=== PATIENT | female | born 1970 | race Caucasian/White ===

== ENCOUNTER 2017-05-13 10:50 | Emergency (ER) | payer OTHER ==
[~2017-05-13] VITALS: Ht 165.1 cm; Wt 70.0 kg
[~2017-05-13 10:50] MED LIST: DICY10CA60 PO; FAMO-18 PO; OMEP20CA9 PO; ONDA4TAB35 PO
[2017-05-13 10:54] VITALS: Ht 165.1 cm; Wt 70.0 kg
[2017-05-13] MEDS ORDERED: ALBUTEROL 0.083% (NEB) 2.5 MG/3 ML AMP HHN STA (11:07)
[2017-05-13] MEDS ORDERED: predniSONE 20 MG TAB PO ONE (11:30)
--- NOTE | 2017-05-13 12:11 | RADRPT ---
PROCEDURE: XR Chest. CLINICAL INDICATION: Shortness of breath, cough TECHNIQUE: Single frontal view of the chest was obtained COMPARISON: 06/02/2015 FINDINGS: The heart and mediastinum are within normal limits. The lungs are clear. There is no pleural effusion or pneumothorax. RPTAT: AA IMPRESSION: No acute disease. .Alfredo Devine MD, MD Date Time Electronically viewed and signed by .Alfredo Devine MD, MD on 05/13/2017 12:11 .S/
[2017-05-13] MEDS ORDERED: ALBU18HF INHALATION (12:29)
[2017-05-13] MEDS ORDERED: PRED20TA PO (12:29)
--- NOTE | 2017-05-13 12:33 | ERD ---
ER Documentation Chief Complaint Date/Time DATE: 05/13/17 TIME: 12:31 Chief Complaint SORETHROAT, COUGH, SOB, DX:BRONCHITIS YESTERDAY GIVEN ABX HPI This 47-year-old female presents with cough and sore throat for last 3 days. She seen yesterday and prescribed Zithromax. They are here for persistent cough. She has no history of fevers, sustained chest pain, vomiting, abdominal pain, diarrhea. She has some mild pleuritic anterior chest pain with coughing ROS All systems reviewed and are negative except as per history of present illness. Medications Home Meds Active Scripts Albuterol Sulfate* (Ventolin HFA*) 18 Gm Hfa.aer.ad, 2 PUFF INHALATION Q4H, #1 INHALER Prov:LAQUITA HART MD 05/13/17 Prednisone* (Prednisone*) 20 Mg Tab, 40 MG PO DAILY for 4 Days, TAB Start May 14, 2017 Prov:LAQUITA HART MD 05/13/17 Famotidine* (Pepcid*) 20 Mg Tablet, 20 MG PO BID for 10 Days, TAB Prov:YESSENIA WALKER DO 08/30/15 Ondansetron Hcl* (Zofran* ODT) 4 mg -ODT Tab.disper, 4 MG PO Q4H Y for NAUSEA AND OR VOMITING, #10 TAB Prov:YESSENIA WALKER DO 08/30/15 Dicyclomine Hcl* (Bentyl*) 10 Mg Capsule, 10 MG PO QID Y for INTESTINAL SPASMS/ CRAMPING, #30 CAP Prov:YESSENIA WALKER DO 08/30/15 Omeprazole* (Prilosec*) 20 Mg Capsule.dr, 20 MG PO DAILY, #30 CAP Prov:ENEIDA BENTLEY NP 05/17/15 Allergies Allergies: Coded Allergies: No Known Drug Allergy (Verified Allergy, Mild, 05/13/17) PMhx/Soc History of Surgery: Yes (rt ear) Anesthesia Reaction: No Hx Neurological Disorder: No Hx Respiratory Disorders: No Hx Cardiac Disorders: No Hx Psychiatric Problems: No Hx Miscellaneous Medical Probl: Yes (GASTRITIS ) Hx Alcohol Use: No Hx Substance Use: No Hx Tobacco Use: No Smoking Status: Never smoker Physical Exam Vitals Vital Signs Date Time Temp Pulse Resp B/P Pulse Ox O2 Delivery O2 Flow Rate FiO2 05/13/17 11:22 72 18 97 21 05/13/17 10:54 98.0 68 22 142/80 97 Physical Exam Const: [], [id number] Head: Atraumatic Eyes: Normal Conjunctiva ENT: Normal External Ears, Nose and Mouth. TMs and oropharynx normal. Neck: Full range of motion..~ No meningismus. Resp: Scattered wheezing and coarse breath sounds. No rales or retractions. Cardio: Regular rate and rhythm, no murmurs Abd: Soft, non tender, non distended. Normal bowel sounds Skin: No petechiae or rashes Back: No midline or flank tenderness Ext: No cyanosis, or edema Neur: Awake and alert Psych: Normal Mood and Affect Results 24 hrs Current Medications Medications (Trade) Dose Ordered Sig/Jules Route PRN Reason Start Time Stop Time Status Last Admin Dose Admin Prednisone (Prednisone) 60 mg ONCE ONCE PO 05/13/17 11:30 05/13/17 11:31 DC 05/13/17 11:10 Albuterol (Proventil 0.083% (Neb)) 5 mg ONCE STAT HHN 05/13/17 11:07 05/13/17 11:08 DC 05/13/17 11:19 Procedures/MDM Chest X-ray 1V Interpreted by me: Soft Tissue: No acute abnormalities Bones: No acute abnormalities Mediastinum/Cardiac Silhouette/Lungs: [No acute abnormalities]. Impression- normal 1 view chest X ray Patient is given albuterol treatment 1 and prednisone 60 mg of mouth. Patient had improved breath sounds on serial exam without hypoxemia, rales, retractions. Patient presents with URI symptoms and mild wheezing. She likely has URI with wheeze. She will discharged home with a short course prednisone and Ventolin and instructions for permission to continue antibiotics although this is likely viral illness. The patient was stable with no new complaints during the ER course. Clinically, there is no current evidence to suggest meningitis, sepsis, acute abdomen, pneumonia, acute coronary syndrome, pulmonary embolism, or any other emergent condition appearing to require further evaluation or hospitalization. The patient should certainly return for any new or worsening symptoms per the aftercare instructions. They should otherwise follow-up with her primary care doctor for reevaluation this week. Departure Diagnosis: Primary Impression: Upper respiratory infection URI type: unspecified URI Qualified Code: J06.9 - Upper respiratory tract infection, unspecified type Condition: Stable Patient Instructions: Bronchitis With Wheezing (Adult) Additional Instructions: x ray normal hoy. Cheque otro vez con rincon doctor primario en el proximo mccormick or regresa para mas o nueva simptomas. ok para continua antibioticos LAQUITA HART MD May 13, 2017 12:32
[2017-05-13 12:37] VITALS: BP 138/76; PULSE 89; RESP 20; TEMP 98
== END 2017-05-13 12:38 | disposition home or self-care (01) ==
LOC: FTE 10:50
DX: J06.9 Acute upper respiratory infection, unspecified (principal); R05 Cough
CPT/HCPCS: 71010; 94664; J7512; Z7610

== ENCOUNTER 2017-08-29 18:41 | Emergency (ER) | payer OTHER ==
[~2017-08-29] VITALS: Ht 162.6 cm; Wt 69.0 kg
[~2017-08-29 18:41] MED LIST changes: +ALBU18HF INHALATION; -FAMO-18 PO; +FAMO-96 PO; +PRED20TA PO
[2017-08-29 18:49] VITALS: Ht 162.6 cm; Wt 69.0 kg
[2017-08-29] MEDS ORDERED: KETOROLAC 30 MG INJ IM STA (19:57)
[2017-08-29 20:20] LABS: BASOPHILS % 0.4 % (0.0-2.0); EOSINOPHILS # 0.1 10^3/ul (0.0-0.5); EOSINOPHILS % 1.1 % (0.0-7.0); HEMATOCRIT 43.2 % (37.0-47.0); HEMOGLOBIN 15.2 g/dl (12.0-16.0); LYMPHOCYTES # 4.6 10^3/ul (0.8-2.9); LYMPHOCYTES % 50.8 % (15.0-51.0); MEAN CORPUSCULAR HEMOGLOBIN 31.3 pg (29.0-33.0); MEAN CORPUSCULAR HGB CONC 35.2 g/dl (32.0-37.0); MEAN CORPUSCULAR VOLUME 89.1 fl (82.0-101.0); MEAN PLATELET VOLUME 9.4 fl (7.4-10.4); MONOCYTE # 0.6 10^3/ul (0.3-0.9); NEUTROPHIL # 3.8 10^3/ul (1.6-7.5); NEUTROPHILS % 41.5 % (39.0-77.0); PLATELET COUNT 272 10^3/UL (140-415); RED BLOOD COUNT 4.85 10^6/ul (4.20-5.40); RED CELL DISTRIBUTION WIDTH 12.3 % (11.5-14.5); WHITE BLOOD COUNT 9.1 10^3/ul (4.8-10.8)
[2017-08-29 20:42] LABS: INR 1.01; PROTIME 13.3 Sec (12.2-14.2)
[2017-08-29 20:47] LABS: ALBUMIN 4.7 g/dl (3.3-4.9); ALBUMIN/GLOBULIN RATIO 1.38; BILIRUBIN,INDIRECT 0.4 mg/dl (0-1.1); BILIRUBIN,TOTAL 0.4 mg/dl (0.2-1.3); CALCIUM 9.5 mg/dl (8.4-10.2); CREATININE 0.74 mg/dl (0.44-1.00); POTASSIUM 3.4 mmol/L (3.5-5.1); TOTAL PROTEIN 8.1 g/dl (6.1-8.1)
[2017-08-29 21:01] LABS: ADD UMIC NO; UR ASCORBIC ACID NEGATIVE (NEGATIVE); UR BILIRUBIN (Dip) NEGATIVE (NEGATIVE); UR BLOOD (Dip) NEGATIVE (NEGATIVE); UR CLARITY CLEAR (CLEAR); UR COLOR STRAW (YELLOW); UR GLUCOSE (Dip) NEGATIVE (NEGATIVE); UR KETONES (Dip) NEGATIVE (NEGATIVE); UR LEUKOCYTE ESTERASE (Dip) NEGATIVE Leu/ul (NEGATIVE); UR NITRITE (Dip) NEGATIVE (NEGATIVE); UR SPECIFIC GRAVITY (Dip) 1.002 (1.003-1.030); UR TOTAL PROTEIN (Dip) NEGATIVE (NEGATIVE); UR UROBILINOGEN (Dip) NEGATIVE (NEGATIVE)
--- NOTE | 2017-08-29 22:10 | RADRPT ---
PROCEDURE: US abdomen right upper quadrant CLINICAL INDICATION: Abdominal pain. TECHNIQUE: Westbrook scale and color Doppler ultrasound of the right upper quadrant of the abdomen was p erformed. COMPARISON: CT dated 04/16/2015. FINDINGS: Pancreas: Visualized portions are unremarkable. Liver: Normal in size and echogenicity with no focal hepatic lesion. Hepatopedal flow in the main po rtal vein. Gallbladder: No cholelithiasis, gallbladder wall thickening, or pericholecystic fluid. Common bile duct: 2.0 mm in diameter. Right Kidney: 8.5 cm in length. Simple cyst at the upper pole measuring 1.4 cm. No nephrolithiasis, hydronephrosis, or mass. Ascites: None. IMPRESSION: 1. No acute abnormality or findings to suggest a source of the patient's symptoms. 2. Benign right renal cyst. RPTAT: HLBP .Ryan Powell MD, MD Date Time Electronically viewed and signed by .Ryan Powell MD, MD on 08/29/2017 22:10 .P/
--- NOTE | 2017-08-31 19:14 | ERD ---
ER Documentation Chief Complaint Chief Complaint no stools for 3 days, constipated HPI Patient is a 47-year-old female presenting to the emergency department complaining of constipation for the past 3 days. While the patient has been in the emergency department waiting, she had 3 solid yellow colored stools. Additionally she reports some right upper quadrant pain. She denies nausea, vomiting, fevers, chills, or other symptoms currently. Symptoms right now are moderate in severity and they are intermittent. ROS All systems reviewed and are negative except as per history of present illness. Medications Home Meds Active Scripts Albuterol Sulfate* (Ventolin HFA*) 18 Gm Hfa.aer.ad, 2 PUFF INHALATION Q4H, #1 INHALER Prov:LAQUITA HART MD 05/13/17 Prednisone* (Prednisone*) 20 Mg Tab, 40 MG PO DAILY for 4 Days, TAB Start May 14, 2017 Prov:LAQUITA HART MD 05/13/17 Famotidine* (Pepcid*) 20 Mg Tablet, 20 MG PO BID for 10 Days, TAB Prov:YESSENIA WALKER DO 08/30/15 Ondansetron Hcl* (Zofran* ODT) 4 mg -ODT Tab.disper, 4 MG PO Q4H Y for NAUSEA AND OR VOMITING, #10 TAB Prov:YESSENIA WALKER DO 08/30/15 Dicyclomine Hcl* (Bentyl*) 10 Mg Capsule, 10 MG PO QID Y for INTESTINAL SPASMS/ CRAMPING, #30 CAP Prov:YESSENIA WALKER DO 08/30/15 Omeprazole* (Prilosec*) 20 Mg Capsule.dr, 20 MG PO DAILY, #30 CAP Prov:ENEIDA BENTLEY NP 05/17/15 Allergies Allergies: Coded Allergies: No Known Drug Allergy (Verified Allergy, Mild, 05/13/17) PMhx/Soc Medical and Surgical Hx: pt denies Medical Hx, pt denies Surgical Hx History of Surgery: Yes (rt ear) Anesthesia Reaction: No Hx Neurological Disorder: No Hx Respiratory Disorders: No Hx Cardiac Disorders: No Hx Psychiatric Problems: No Hx Miscellaneous Medical Probl: Yes (GASTRITIS ) Hx Alcohol Use: No Hx Substance Use: No Hx Tobacco Use: No Smoking Status: Never smoker Physical Exam Vitals Vital Signs Date Time Temp Pulse Resp B/P Pulse Ox O2 Delivery O2 Flow Rate FiO2 08/29/17 18:49 98.6 68 20 120/81 98 Physical Exam Const: Nontoxic, well-appearing female in no acute distress. Head: Atraumatic Eyes: Normal Conjunctiva ENT: Normal External Ears, Nose and Mouth. Neck: Full range of motion..~ No meningismus. Resp: Clear to auscultation bilaterally Cardio: Regular rate and rhythm, no murmurs Abd: Soft, mild right upper quadrant tenderness palpation but no real Abdi sign, non distended. Normal bowel sounds and no tenderness palpation of McBurney 's point. No rebound tenderness or guarding noted. Skin: No petechiae or rashes Back: No midline or flank tenderness Ext: No cyanosis, or edema Neur: Awake and alert Psych: Normal Mood and Affect Result Diagram: 08/29/17200908/29/172009 Results 24 hrs Laboratory Tests Test 08/29/17 20:00 08/29/17 20:10 Urine Color STRAW Urine Clarity CLEAR Urine pH 8.0 Urine Specific Taft 1.002 Urine Ketones NEGATIVEmg/dL Urine Nitrite NEGATIVEmg/dL Urine Bilirubin NEGATIVEmg/dL Urine Urobilinogen NEGATIVEmg/dL Urine Leukocyte Esterase NEGATIVELeu/ul Urine Hemoglobin NEGATIVEmg/dL Urine Glucose NEGATIVEmg/dL Urine Total Protein NEGATIVEmg/dl White Blood Count 9.110^3/ul Red Blood Count 4.8510^6/ul Hemoglobin 15.2g/dl Hematocrit 43.2% Mean Corpuscular Volume 89.1fl Mean Corpuscular Hemoglobin 31.3pg Mean Corpuscular Hemoglobin Concent 35.2g/dl Red Cell Distribution Width 12.3% Platelet Count 36998^3/UL Mean Platelet Volume 9.4fl Neutrophils % 41.5% Lymphocytes % 50.8% Monocytes % 6.0% Eosinophils % 1.1% Basophils % 0.4% Nucleated Red Blood Cells % 0.0/100WBC Neutrophils # 3.810^3/ul Lymphocytes # 4.610^3/ul Monocytes # 0.610^3/ul Eosinophils # 0.110^3/ul Basophils # 0.010^3/ul Nucleated Red Blood Cells # 0.010^3/ul Prothrombin Time 13.3Sec Prothrombin Time Ratio 1.0 INR International Normalized Ratio 1.01 Activated Partial Thromboplast Time 27.0Sec Sodium Level 142mmol/L Potassium Level 3.4mmol/L Chloride Level 102mmol/L Carbon Dioxide Level 29mmol/L Anion Gap 14 Blood Urea Nitrogen 8mg/dl Creatinine 0.74mg/dl Glucose Level 85mg/dl Calcium Level 9.5mg/dl Total Bilirubin 0.4mg/dl Direct Bilirubin 0.00mg/dl Indirect Bilirubin 0.4mg/dl Aspartate Amino Transf (AST/SGOT) 25IU/L Alanine Aminotransferase (ALT/SGPT) 32IU/L Alkaline Phosphatase 69IU/L Total Protein 8.1g/dl Albumin 4.7g/dl Globulin 3.40g/dl Albumin/Globulin Ratio 1.38 Lipase 119U/L Current Medications Medications (Trade) Dose Ordered Sig/Jules Route PRN Reason Start Time Stop Time Status Last Admin Dose Admin Ketorolac Tromethamine (Toradol) 30 mg ONCE STAT IM 08/29/17 19:57 08/29/17 19:59 DC 08/29/17 21:25 Procedures/MDM 47-year-old female presents to the emergency department with complaints of right upper quadrant pain and constipation, however she did have 3 breakthrough bowel movements in the department. She was given IM Toradol and is feeling improved on reevaluation. Lab studies showed no evidence of leukocytosis or anemia, chemistry panel was within normal limits. Urinalysis negative for any concerning findings. Gallbladder ultrasound showed no acute abnormality or findings to suggest a source of the patient's symptoms. She did have a benign right renal cyst. Symptoms were likely secondary to constipation which resolved in the department. There is no evidence of acute abdomen or other life -threatening pathology after workup in the department. The patient was stable for discharge and is to have close follow-up with her primary care physician. She is to return immediately for any new or worsening symptoms. Results were shared with the patient and she was given copies. Her questions and concerns were addressed. PROCEDURE: US abdomen right upper quadrant CLINICAL INDICATION: Abdominal pain. TECHNIQUE: Westbrook scale and color Doppler ultrasound of the right upper quadrant of the abdomen was performed. COMPARISON: CT dated 04/16/2015. FINDINGS: Pancreas: Visualized portions are unremarkable. Liver: Normal in size and echogenicity with no focal hepatic lesion. Hepatopedal flow in the main portal vein. Gallbladder: No cholelithiasis, gallbladder wall thickening, or pericholecystic fluid. Common bile duct: 2.0 mm in diameter. Right Kidney: 8.5 cm in length. Simple cyst at the upper pole measuring 1.4 cm. No nephrolithiasis, hydronephrosis, or mass. Ascites: None. IMPRESSION: 1. No acute abnormality or findings to suggest a source of the patient's symptoms. 2. Benign right renal cyst. RPTAT: HLBP .Ryan Powell MD, Date Time Electronically viewed and signed by .Ryan Powell MD, MD on 08/29/2017 22:10 Departure Diagnosis: Primary Impression: Abdominal pain Abdominal location: right upper quadrant Qualified Code: R10.11 - Right upper quadrant abdominal pain Condition: Fair Additional Instructions: Follow up with your PCP within the next 1-3 days for a repeat evaluation. If you require a referral to a specialist, your Primary Care Provider may be able to provide this for you. In most patient cases, a referral is not required. If you have further questions regarding this matter, please ask your Primary Care Provider. Return the the emergency department immediately if symptoms worsen or change. If you have any questions regarding medications, ask your pharmacist or us before you leave. If any adverse reactions, occur while taking your medications, discontinue the treatment and return to the emergency department immediately. If any new or worsening symptoms, uncontrolled fevers, or other unexplained symptoms occur, return to the emergency department immediately. Take your medications as directed, and complete the entire course of treatment. KANG OJEDA PA-C Aug 31, 2017 19:14
== END 2017-08-29 23:32 | disposition home or self-care (01) ==
LOC: FTE 18:41
DX: K59.00 Constipation, unspecified (principal); R10.11 Right upper quadrant pain
CPT/HCPCS: 76705; 80053; 81003; 83690; 85025; 85610; 85730; 96372; J1885; Z7502

== ENCOUNTER 2018-05-23 17:06 | Emergency (ER) | END 2018-05-23 21:01 | disposition home or self-care (01) ==

== ENCOUNTER 2019-03-13 11:14 | Emergency (ER) | payer SELFPAY ==
[~2019-03-13] VITALS: Ht 162.6 cm; Wt 71.3 kg
[~2019-03-13 11:14] MED LIST changes: +DICY10CA40 PO; -DICY10CA60 PO; +DOCU-144 PO; +GLYC1SUP92 PR
[2019-03-13 11:25] VITALS: Ht 162.6 cm; Wt 71.3 kg
--- NOTE | 2019-03-13 12:39 | ERD ---
ER Documentation Chief Complaint Chief Complaint lump to left breast x 1 month HPI 49-year-old female, presents the emergency department, complaining of painful lump to the left breast for 1 month. The patient denies trauma, no fever, no chills. She reports a similar lump in the right breast that required aspiration in the past. The patient has an appointment with her primary doctor in 3 days. ROS All systems reviewed and are negative except as per history of present illness. Medications Home Meds Active Scripts Ibuprofen* (Motrin*) 600 Mg Tab, 600 MG PO Q8, #20 TAB Prov:IRIS DESAI MD 03/13/19 Docusate Sodium* (Colace*) 100 Mg Capsule, 100 MG PO BID, #30 CAP Prov:MARIO ROLLINS PA-C 05/23/18 Glycerin* (Glycerin (Adult)*) 1 Each Supp.rect, 1 EACH MA DAILY PRN for CONSTIPATION for 7 Days, SUPP.RECT Prov:MARIO ROLLINS PA-C 05/23/18 Albuterol Sulfate* (Ventolin HFA*) 18 Gm Hfa.aer.ad, 2 PUFF INHALATION Q4H, #1 INHALER Prov:LAQUITA HART MD 05/13/17 Prednisone* (Prednisone*) 20 Mg Tab, 40 MG PO DAILY for 4 Days, TAB Start May 14, 2017 Prov:LAQUITA HART MD 05/13/17 Famotidine* (Pepcid*) 20 Mg Tablet, 20 MG PO BID for 10 Days, TAB Prov:YESSENIA WALKER DO 08/30/15 Ondansetron Hcl* (Zofran* ODT) 4 mg -ODT Tab.disper, 4 MG PO Q4H PRN for NAUSEA AND OR VOMITING, #10 TAB Prov:YESSENIA WALKER DO 08/30/15 Dicyclomine HCl (Dicyclomine HCl) 10 Mg Capsule, 10 MG PO QID PRN for INTESTINAL SPASMS/CRAMPING, #30 CAP Prov:YESSENIA WALKER DO 08/30/15 Omeprazole* (Prilosec*) 20 Mg Capsule.dr, 20 MG PO DAILY, #30 CAP Prov:ENEIDA BENTLEY NP 05/17/15 Allergies Allergies: Coded Allergies: No Known Drug Allergy (Verified Allergy, Mild, 05/13/17) PMhx/Soc History of Surgery: Yes (rt ear) Anesthesia Reaction: No Hx Neurological Disorder: No Hx Respiratory Disorders: No Hx Cardiac Disorders: No Hx Psychiatric Problems: No Hx Miscellaneous Medical Probl: Yes (GASTRITIS ) Hx Alcohol Use: No Hx Substance Use: No Hx Tobacco Use: No FmHx No family history of breast or ovarian cancer. Physical Exam Vitals Vital Signs Date Temp Pulse Resp B/P (MAP) Pulse Ox O2 O2 Flow FiO2 Time Delivery Rate 03/13/19 97.7 88 18 132/83 97 11:25 (99) Physical Exam Const: No acute distress Head: Atraumatic Eyes: Normal Conjunctiva ENT: Normal External Ears, Nose and Mouth. Neck: Full range of motion. No meningismus. Resp: Clear to auscultation bilaterally. Breast: Symmetrical, normal inspection, left breast with 3 x 3 cm well-defined area of induration, but no erythema, no warmth, no fluctuance. Cardio: Regular rate and rhythm, no murmurs Abd: Soft, non tender, non distended. Normal bowel sounds Skin: No petechiae or rashes Back: No midline or flank tenderness Ext: No cyanosis, or edema Neur: Awake and alert Psych: Normal Mood and Affect Results 24 hrs Patient: ZENY MOCK : 1970 Age: 49 Sex: F MR #: [id number] DOS: 03/13/19 1242 Ordering MD: IRIS DESAI MD Location: [facility] Room/Bed: PROCEDURE: Left breast ultrasound. CLINICAL INDICATION: Left breast lump. Fibrocystic disease of breast. TECHNIQUE: Left four-quadrant, retroareolar, whole breast and axillary sonography was performed. COMPARISON: None FINDINGS: No solid or suspicious masses. No areas of architectural distortion. No malignant adenopathy. In the left upper outer quadrant, 2-3 o'clock position, 2-3 cm from the nipple; there is a benign, 2.7 x 2.6 x 2.2 cm simple cyst. IMPRESSION: No sonographic findings of malignancy. Benign, palpable, dominant 2.7 cm left upper outer quadrant simple cyst. ACR BIRADS 2: BENIGN Procedures/MDM Vital signs stable. Differential diagnosis considered include hematoma, mastitis, lipoma, cyst, fibroglandular changes of the breast. Low suspicion for malignancy. During the ED course the patient remained stable, no new complaints. Results and clinical impression discussed with the patient who agrees with management. The patient is stable to be treated outpatient and will be discharged home with a Rx for ibuprofen, some side effects of prescribed medications (headache, rash, nausea, vomiting, diarrhea, bleeding, hypertension, interactions with other medications) were reviewed. Follow up with the primary care provider in the next 48h has been recommended. If symptoms persist, worsen or new symptoms develop, then patient should return to the ED immediately. Instructions explained and given directly by me to the patient with acknowledgm ent and demonstrated understanding. Disclaimer: Inadvertent spelling and grammatical errors are likely due to EHR/dictation software use and do not reflect on the overall quality of patient care. Also, please note that the electronic time recorded on this note does not necessarily reflect the actual time of the patient encounter. Departure Diagnosis: Primary Impression: Cyst of left breast Condition: Stable Additional Instructions: Muchas richard por [facility] para rincon servicio. Esperamos que en rincon visita a la latrell de emergencia rincon problema medico haya sido solucionado y que se sienta mucho mejor. Para estar seguros que rincon mejoria sigue en proceso, le pedimos el favor de hacer ni shamar de seguimiento medico con rincon doctor primario en los proximos 2-4 mccormick. Lleve con usted estos documentos y las medicinas recetadas. Si klaus sintomas empeoran, NO SE ESPERE, por favor regrese a latrell de emergencia INMEDIATAMENTE. En navjot que usted no tenga un mdico de atencin primaria: Llame al mdico o clnica comunitaria de referencia que aparece abajo savana las horas de consultorio para hacer ni shamar para que le vean. CLINICAS: [facility] [phone] [id number] [facility] 218 [phone] [id number] [facility] [phone] [facility] 691 [phone] [id number] [facility] [phone] [address] [facility]. [phone] IRIS CUELLAR MD March 13, 2019 12:39
[2019-03-13] MEDS ORDERED: IBUP-1542 PO (14:39)
== END 2019-03-13 14:52 | disposition home or self-care (01) ==
LOC: FTE 11:14
DX: N60.02 Solitary cyst of left breast (principal)
CPT/HCPCS: 76642